=== PATIENT | male | born 1990 | race Two or more races ===

== ENCOUNTER → 2018-06-13 | Emergency (ER) | payer SELFPAY ==
[~2018-06-13] VITALS: Ht 180.3 cm; Wt 81.6 kg
--- NOTE | 2018-06-13 15:30 | NUR ---
SYCNOPAL EPISODE THIS AM AT 0900, CHEST PAIN AND WEAKNESS X 6 MONTHS. PT AAOX3, VSS. DENIES SOB, DIZZINESS, N/V, ARM/JAW PAIN @ THIS TIME. PT SEEN & EVAL'D BY JAMARCUS DUNHAM & WILL CONT TO MONITOR.
[2018-06-13 15:43] LABS: BASOPHILS # (AUTO) 0.1 /CMM (0.0-0.2); BASOPHILS % (AUTO) 1.3 % (0.0-2.0); HEMATOCRIT 47 % (39-51); HEMOGLOBIN 15.7 g/dL (13.5-17.5); LYMPHOCYTES % (AUTO) 29.7 % (20.0-44.0); MEAN CORPUSCULAR HGB CONC 33 g/dl (31.0-36.0); MEAN CORPUSCULAR VOLUME 86 fL (80-96); MONOCYTES # (AUTO) 0.4 /CMM (0.1-1.30); NEUTROPHILS # (AUTO) 4.1 /CMM (1.8-8.9); PLATELET COUNT (AUTO) 208 /CMM (150-450); RDW COEFFICIENT OF VARIATION 11.5 (11.5-15.0); RED BLOOD CELL COUNT(AUTO) 5.49 MIL/uL (4.5-6.0); WHITE BLOOD COUNT (AUTO) 6.7 K/uL (4.3-11.0)
--- NOTE | 2018-06-13 15:50 | NUR ---
LABS DRAWN. EKG DONE & SHOWN TO PA. PORTABLE CXRAY @ BS.
[2018-06-13 16:28] LABS: CALCIUM, SERUM 9.3 mg/dL (8.5-10.1); CREATININE 0.9 mg/dL (0.6-1.3); POTASSIUM 3.8 mmol/L (3.5-5.1)
[2018-06-13 16:45] LABS: ALBUMIN 4.1 g/dL (3.4-5.0); BILIRUBIN,TOTAL 0.6 mg/dL (0.2-1.0)
--- NOTE | 2018-06-13 17:30 | NUR ---
PT LEFT WITHOUT SIGNING ACI
--- NOTE | 2018-06-13 17:30 | NUR ---
Girma whitney in [place] - 06/13/18 at 1730 by PATRICK Patient discharged to home in stable condition. Written and verbal after care instructions given. Patient verbalizes understanding of instruction.
[2018-06-13 17:32] VITALS: BP 127/84
== END | disposition home or self-care (01) ==
LOC: ER 14:55
DX: F41.9 Anxiety disorder, unspecified (principal); Z60.2 Problems related to living alone
CPT/HCPCS: 36415; 71045; 80053; 85025; 93005; 99285; A4606; Z7610